=== PATIENT | female | born 1965 | race American Indian/Alaskan Native ===

== ENCOUNTER 2016-08-20 21:03 | Emergency (ER) | payer OTHER ==
[2016-08-20 21:17] VITALS: BP 164/90; PULSE 75; TEMP 97.6; O2SAT 99
[2016-08-20] MEDS ORDERED: Oxycodone/Acetaminophen 5/325 mg Tab PO STA (21:37)
--- NOTE | 2016-08-20 21:40 | C.PDOC ---
History Of Present Illness 50 yr old female presents to the ER for evaluation of right sided back pain, gradually worsening since morning. Patient states the pain is localized and worse with movement and standing. Patient admits to the similar symptoms in the past. Patient denies trauma, injury, nausea, vomiting, abdominal pain, diarrhea , dysuria, hematuria, incontinence, saddle anesthesia, weakness or numbness to B /L LEs. Ambulate to Ed for evaluation, appears in pain. Time Seen by Provider: 08/20/16 21:17 Chief Complaint (Nursing): Back Pain History Per: Patient History/Exam Limitations: no limitations Onset/Duration Of Symptoms: Gradual (Since morning ) Current Symptoms Are (Timing): Still Present Past Medical History Reviewed: Historical Data, Nursing Documentation, Vital Signs Vital Signs: Last Vital Signs Temp 97.6 F 08/20/16 21:16 Pulse 75 08/20/16 21:16 Resp 18 08/20/16 21:16 BP 164/90 H 08/20/16 21:16 Pulse Ox 99 08/20/16 21:46 - Medical History PMH: HTN Family History: States: No Known Family Hx - Social History Hx Alcohol Use: No Hx Substance Use: No Review Of Systems Except As Marked, All Systems Reviewed And Found Negative. Gastrointestinal: Negative for: Nausea, Vomiting, Abdominal Pain, Diarrhea Genitourinary: Negative for: Dysuria, Incontinence, Hematuria Musculoskeletal: Positive for: Back Pain (Right sided back pain ) Neurological: Negative for: Weakness, Numbness Physical Exam - Physical Exam Appears: Well, Non-toxic, No Acute Distress Skin: Normal Color, Warm Eye(s): bilateral: PERRL Nose: Normal Throat: Normal, No Erythema, No Exudate, No Drooling Neck: Trachea Midline, Supple Cardiovascular: Rhythm Regular Respiratory: No Stridor, No Wheezing Gastrointestinal/Abdominal: Soft, No Tenderness Back: No CVA Tenderness, No Vertebral Tenderness, Paraspinal Tenderness (RIGHT LUMBAR PARASPINAL TENDERNESS. NO MIDLINE TENDERNESS), Other (RIGHT FLANK TENDERNESS) Extremity: No Pedal Edema, No Swelling Neurological/Psych: Oriented x3, Normal Speech, Normal Motor, Normal Sensation, Normal Reflexes ED Course And Treatment O2 Sat by Pulse Oximetry: 99 Pulse Ox Interpretation: Normal Progress Note: On re-eval, pt is afebrile, hemodynamicalyt stable. Nontoxic. AMbulaoty irn ED with stable gait. PulseOx 98% RA. ENT: no acute findings. ABd : benign. Neurologicaly intact. UA results review and appears normal. Pt has clinical findings c/w Right sided lumbar radiculopathy. Pt advised. Ref. to f/u with PMD in 2-3 days for re-eval. return if any new changes. Medical Decision Making Medical Decision Making: PLAN: * Urinalysis * Percocet PO * Motrin PO Disposition Counseled Patient/Family Regarding: Studies Performed, Diagnosis, Need For Followup, Rx Given - Disposition Referrals: Matthew Sahni MD [Staff Provider] - Disposition: HOME/ ROUTINE Disposition Time: 21:49 Condition: STABLE Additional Instructions: Take medication as prescribed Light duty to lower back Follow up with PMD in 2-3 days for re-evaluation. Return to ED if any worsening or new changes. Prescriptions: Ibuprofen [Motrin Tab] 600 mg PO Q6 #20 tab Methocarbamol [Robaxin] 500 mg PO TID #14 tab traMADol [Ultram] 50 mg PO TID #7 tab Instructions: Lumbar Radiculopathy (ED) - Clinical Impression Clinical Impression: Lumbar radiculopathy - PA / PIPELINE OPERATOR / Resident Statement MD/DO has reviewed & agrees with the documentation as recorded. - Scribe Statement The provider has reviewed the documentation as recorded by the Scribe Elsie White All medical record entries made by the Scribe were at my direction and personally dictated by me. I have reviewed the chart and agree that the record accurately reflects my personal performance of the history, physical exam, medical decision making, and the department course for this patient. I have also personally directed, reviewed, and agree with the discharge instructions and disposition.
[2016-08-20 21:41] LABS: RBC URINE < 1 /hpf (0-3); URINE BILIRUBIN NEGATIVE (NEGATIVE); URINE BLOOD NEGATIVE (NEGATIVE); URINE COLOR Yellow (YELLOW); URINE GLUCOSE (UA) NORMAL (Normal); URINE KETONE NEGATIVE (NEGATIVE); URINE LEUKOCYTE ESTERASE NEG Leu/uL (Negative); URINE PROTEIN 1+ mg/dL (NEGATIVE); URINE UROBILINOGEN NORMAL mg/dL (0.2-1.0); WBC URINE 1 /hpf (0-5)
[2016-08-20] MEDS ORDERED: Oxycodone/Acetaminophen 5/325 mg Tab ONE (21:44)
[2016-08-20 22:03] VITALS: RESP 20
== END 2016-08-20 22:02 | disposition home or self-care (01) ==
LOC: C.ER 21:03
DX: M54.16 Radiculopathy, lumbar region (principal)

== ENCOUNTER 2017-11-13 05:43 | Day surgery (SDC) | payer OTHER ==
[2017-11-06 12:17] VITALS: BMI 41.1
[2017-11-13] MEDS ORDERED: Rocuronium 10 mg/ml (5 ml) ONE ×2 (08:39→09:54)
[2017-11-13] MEDS ORDERED: Bupivacaine 0.25% 20 ML INJ IJ ONE ×2 (09:06→13:44)
[2017-11-13] MEDS ORDERED: EPINEPHrine 1:1000 Nasal Sol(30mL) ONE (09:07)
[2017-11-13] MEDS ORDERED: ceFAZolin IV 2 gm in Dextrose 2 GM/50 ML BAG IVPB ONE (09:07)
[2017-11-13] MEDS ORDERED: Morphine 4 MG/ML VIAL ONE ×2 (09:12→11:42)
[2017-11-13] MEDS ORDERED: ePHEDrine 50 mg/ml Inj ONE (10:54)
[2017-11-13] MEDS ORDERED: Neostigmine Methylsulfate 3mg/3ml Syringe IV ONE (11:58)
[2017-11-13] MEDS ORDERED: Propofol 10 mg/ml Inj (20 ML) ONE (12:20)
[2017-11-13] MEDS: HYDROmorphone 0.5 mg/0.5 ml ISec IVP PRN ×2 (13:18→13:38)
[2017-11-13 13:19] LABS: HEPATITIS B SURFACE AG Negative (NEGATIVE)
[2017-11-13 13:25] LABS: HEPATITIS A IGM NEGATIVE (NEGATIVE); HEPATITIS B CORE AB NEGATIVE (NEGATIVE)
[2017-11-13 13:37] LABS: HEPATITIS C ANTIBODY NEGATIVE (NEGATIVE)
[2017-11-13 15:14] VITALS: O2SAT 100
[2017-11-13 17:39] VITALS: BP 147/70; PULSE 88; RESP 18; TEMP 97
--- NOTE | 2017-11-13 18:02 | PCM.ANESB7 ---
Adductor Canal Block - Adductor Canal Block Date of Procedure: 11/13/17 Anesthiologist: Roman Marrero Pre-Procedure Diagnosis: acute postoperative pain Post-Procedure Diagnosis: acute postoperative pain Procedure Performed: Adductor Canal Block Left - Procedure Adductor Canal Block: The procedure was explained to the patient that it is for the post-operative pain management. Consent was obtained after a thorough discussion with the patient regarding the benefits and possible complications of local anesthetic adductor canal block of the femoral nerve. Standard monitors, as defined by the ASA, were applied to the patient. Time-out was held with the circulating nurse to confirm the appropriate block. After applying supplemental oxygen and administering IV Sedation as needed, the patient was placed in supine position with and the operative leg was flexed slightly at the knee and externally rotated as needed, and was kept anatomically stable. The mid-thigh of the LEFT lower extremity was exposed. The ultrasound transducer was then applied transversely along the medial aspect, about midway down the thigh and the femoral artery and vein were identified in appropriate relation with the sartorius muscle. At this time, the femoral nerve was visualized lateral to the femoral artery within the canal. After thorough identification, this area area was prepped with Chloroprep solution three times and 1 % Lidocaine was injected subcutaneously for topical anesthesia. At this point, a #22 gauge Stimuplex 4-inch needle was inserted in-plane in a [id number] orientation, and advanced toward the femoral nerve. Advancement was performed carefully under direct ultrasound visualization. . After negative aspiration, _10_cc of __0.25% bupivicaine__was injected and this was followed with 0.25% bupivicaine. Under ultrasound guidance the local anesthetics were observed spreading around the saphenous nerve. The needle was removed intact and sterile dressing was applied. The patient had stable vital signs, was conscious and in no apparent distress. The patient tolerated the nerve block well with stable vital signs with no complaints throughout, no paraesthesias or pain during injection.
--- NOTE | 2017-11-14 16:57 | PCM.SURG1 ---
Surgeon's Initial Post Op Note - Surgeon's Notes Surgeon: Elgin Diaz MD [facility] Occupational Therapist: DANIEL Sotelo Type of Anesthesia: General Endo, [facility] Pre-Operative Diagnosis: Left knee: #1 medial meniscal tear. #2 osteochondral full thickness injury to Lateral femoral condyle. #3 lateral patellar maltracking. #4 valgus alignment. #5 synovitis Operative Findings: Left knee: #1 medial meniscal tear (complex posterior horn flap tear not repairable/ peripheral red-red zone tear with instability). #2 osteochondral full thickness injury to Lateral femoral condyle (measuring [id number] at anterior aspect of WB zone). #3 full thickness cartilage injury to medial femoral condyle (measuring 20mm AP x 8mm width at WB aspect of middle MFC). #4 lateral meniscal tear (free edge complex tearing, not repairable/ peripheral red-red zone menisco-capsular detachment, repairable). #5 lateral patellar maltracking (grade 2). #6 valgus alignment. #7 synovitis all 3 compartments. #8 hypertorphic fat pad inflammed (casuing anterior impingement) . #9 patello-femoral/ trochlear grade 2 chondromalacia Post-Operative Diagnosis: Left knee: #1 medial meniscal tear (complex posterior horn flap tear not repairable/ peripheral red-red zone tear with instability). #2 osteochondral full thickness injury to Lateral femoral condyle (measuring [id number] at anterior aspect of WB zone). #3 full thickness cartilage injury to medial femoral condyle (measuring 20mm AP x 8mm width at WB aspect of middle MFC). #4 lateral meniscal tear (free edge complex tearing, not repairable/ peripheral red-red zone menisco-capsular detachment, repairable) . #5 lateral patellar maltracking (grade 2). #6 valgus alignment. #7 synovitis all 3 compartments. #8 hypertorphic fat pad inflammed (casuing anterior impingement). #9 patello-femoral/ trochlear grade 2 chondromalacia Operation Performed: Left knee : #1 open osteochondral allograft transplant lateral femoral condyle. #2 open osteochondral allograft transplant medial femoral condyle. #3 arthroscopic lateral meniscus repair. #4 arthroscopic partial medial meniscectomy. #5 arthroscopic extensive synovectomy all 3 compartments. #6 open extensor mechanism realignment (VMO advancement and MPF L plication). #7 arthroscopic resection and debridement of symptomatic med and lateral plica bands. #8 arthroscopic resection and debridement of hypertrophic fat pad. #9 arthroscopic intra-articular PRP injection Specimen/Specimens Removed: specimen = none. Complications = none. Tourniquet time = 120 minutes at 300 mmHg. Implant =. #1 Linvatec all inside Sequent meniscal repair system with 4 implants used for medial meniscus stabilization, 8 implants used for lateral meniscus repair, 3 kids opened in total. #2 [employer] /Arthrex lateral femoral condyle fresh osteochondral allograft for which osteochondral allograft transplantation was carried out to the lateral femoral condyle and medial femoral condyle Estimated Blood Loss: EBL {In ML}: 50 Blood Products Given: N/A Drains Used: No Drains Post-Op Condition: Good Date of Surgery/Procedure: 11/13/17 Time of Surgery/Procedure: 12:00
--- NOTE | 2017-11-15 03:51 | OP ---
Copied To: Elgin Diaz MD Attending MD: Elgin Diaz MD PROCEDURE DATE: 11/13/2017 PREOPERATIVE DIAGNOSES: Left knee, 1. Medial meniscal tear. 2. Osteochondral injury, lateral femoral condyle. 3. Lateral patellar maltracking. 4. Valgus alignment. 5. Synovitis. POSTOPERATIVE DIAGNOSES: Left knee, 1. Medial meniscal tear (complex posterior horn flap tear not repairable/peripheral red-red zone tear with instability amenable to stabilization). 2. Osteochondral full-thickness injury to lateral femoral condyle (measuring 20 mm anterior to posterior x 23 mm width at anterior aspect of weightbearing zone). 3. Full-thickness cartilage injury to medial femoral condyle (measuring 20 mm anterior to posterior x 8 mm width at weightbearing aspect of middle zone of medial femoral condyle). 4. Lateral meniscal tear (free-edge complex tearing not repairable/peripheral red-red zone meniscal capsular detachment repairable) 5. Lateral patellar maltracking grade 2. 6. Valgus alignment. 7. Synovitis in all 3 compartments. 8. Hypertrophic inflamed fat-pad (causing anterior impingement). 9. Patellofemoral/trochlear grade 2 chondromalacia. PROCEDURE: Left knee, 1. Open osteochondral allograft transplantation to lateral femoral condyle. 2. Open osteochondral allograft transplantation to medial femoral condyle. 3. Arthroscopic lateral meniscus repair. 4. Arthroscopic partial medial meniscectomy. 5. Arthroscopic extensive synovectomy, all three compartments. 6. Open extensor mechanism realignment. 7. Arthroscopic resection and debridement of symptomatic medial and lateral plica bands. 8. Arthroscopic resection and debridement of hypertrophic fat-pad. 9. Arthroscopic intraarticular PRP injection. 10. Arthroscopic chondroplasty patellofemoral joint. SURGEON: Elgin Diaz MD PRODUCT MANAGEMENT INTERN: Vivi Sorto PA-C JUSTIFICATION FOR PRODUCT MANAGEMENT INTERN: Vivi Sorto is a certified physician social human services assistants whose skilled surgical service was an absolutely necessity for successful completion of the procedure as he provided skilled surgical assistance with positioning of patient, positioning of extremity, management of surgical field, management of arthroscopic equipment including all inside arthroscopic meniscal repair, chondroplasty, retractions of neurovascular structures, and preparation of recipient site for osteochondral allograft to medial femoral condyle and lateral femoral condyle, preparation of donor osteochondral allograft transplantation grafts, allograft transplantation to both sites, final placement and fixation of osteochondral allograft transplantation to medial femoral condyle and lateral femoral condyle, open extensor mechanism realignment, wound closure, fitting and placement of postop hinged knee brace. Emaus Macario was present for the entire case and was an absolute necessity for successful completion of the procedure. TYPE OF ANESTHESIA: General endotracheal anesthesia with a postop regional nerve block placed by anesthesia staff in PACU. COMPLICATIONS: None. ESTIMATED BLOOD LOSS: 50 mL SPECIMEN: None. DRAINS: None. IMPLANTS: Linvatec All-Inside Meniscal Repair System with 4 implants used for medial meniscus stabilization, 8 implants used for lateral meniscus repair, 4 kits opened in total. Quincus/Arthrex lateral femoral condyle fresh osteochondral allograft for which the osteochondral allograft transplantation was harvested and used as a donor for the recipient to the lateral femoral condyle and medial femoral condyle. DISPOSITION: Patient was extubated and transferred to the PACU in stable condition and tolerated the procedure well. INDICATIONS FOR SURGERY: The patient is a 52-year-old female with a past medical history significant for hypertension who presents to the office under my care for the first time on 09/21/2017 with left knee pain with multiple episodes of giving way and locking. She stated that she thought 3 weeks previously she had a misstep and had progressively worsening medial and lateral joint line pain. Prior to this, she did not have significant left knee pain. She had been increasing her activity as well to try to lose weight, and at this point in time, feels that she is frustrated because she is not able to continue her lopez progress in her lifestyle modification to lose weight. She was referred by her primary care physician, Dr. Sahni, who attempted for an MRI that was done at [facility] on 09/10/2017 of the left knee. MRI left knee done at [facility] on 09/10/2017 was read as: 1. Vyja-kd-hlxowywy cartilage loss involving the anterior to mid portion of the lateral femoral condyle with a large focal area of signal abnormality with cortical surface abnormality at the level of the anterior lateral femoral condyle near the intercondylar notch, measuring 2 x 1.5 x 2.2 cm. This may represent a prominent osteochondral lesion with associated articular surface and cortical abnormality. 2. Thinning and attenuation with increased signal seen within the visualized anterior cruciate ligament, suggested for moderate great sprain. 3. Transverse linear oblique signal within the body and posterior horn of the medial meniscus, suggested for a tear. 4. Linear increased signal seen within the body and posterior horn of the lateral meniscus, suggested for intrasubstance degeneration. 5. High-grade sprain and/or partial tearing, medial collateral ligament. 6. Focal cartilage thinning and loss at the medial patellar facet. 7. Moderate cartilage thinning and loss involving the anterior to mid portion of the medial compartment. On initial presentation in the office, she had painful range of motion with pain localized to the medial and lateral joint lines with no evidence of instability. There was reproducible clicking and catching along the lateral femoral condyle during patellar tracking representing what we thought would be an osteochondral lesion interacting with the patellofemoral joint as she had lateral patellar maltracking and a valgus alignment. The patella exhibited grade 1 to 2 lateral patellar maltracking but no full on instability or ability to dislocate. X-rays done in my office showed that the joint spaces were well maintained with no significant advanced signs of degenerative joint disease present. She underwent a cortisone mixture injection in my office on 09/21/2017 that resulted in complete resolution of pain and she was placed in a hinged knee brace. She was referred to physical therapy for which she was compliant. She returned to the office 4 weeks later and stated that the injection provided her with near complete resolution of pain for approximately 1 week and then the pain progressively returned to baseline level of 8/10 at all times. She was having difficulty with ADLs and performing her work functions and getting to work to commute. After reviewing her MRI with her and going through treatment options, she stated that she did not want to undergo anymore injections and that she wanted to have definitive care as soon as possible, as this pain was acute in onset and she did have acute changes on MRI. She was indicated for left knee arthroscopic, medial and possibly lateral meniscus repairs versus partial meniscotomy, synovectomy, and all related indicated arthroscopic procedures as well as open osteochondral allograft transplantation to the lateral femoral condyle and possibly the medial femoral condyle as well as an open extensor mechanism realignment in the form of MPFL plication and VMO advancement and all related indicated procedures. The risks, benefits, and alternatives of the procedure were discussed at length with the patient with the risks included not limited to infection, neurovascular damage, need for further surgery, failure of graft incorporation, graft rejection, accelerated chondral wear, postoperative pain, development of chronic pain and disability, development of blood clots including DVT and PE, need for further surgery, progression of degenerative joint disease to the point of needing a knee replacement, inability to return to preinjury level of activity and function, anesthesia reactions including . After answering all of her questions, she stated that she understood the risks and wished to proceed with surgery. She watched surgical animation videos and diagnosis animation video and stated that she had a good understanding of her procedure as well as her diagnoses. I reviewed at length with her the postoperative rehabilitation protocol and she stated that she had full understanding of the protocol and knew that she had to be compliant with the postop instructions in order for her to maximize chances of having successful outcome after surgery. She was referred to her primary care physician, Dr. Sahni, for preoperative medical evaluation and the procedure was scheduled at [facility] on 11/13/2017. PROCEDURE IN DETAIL: The patient was identified in the preoperative holding area and the left knee was marked for surgery. Once again, as described above, the risks, benefits, and alternatives of the procedure were discussed at length with the patient and informed consent was obtained. After brief discussion with anesthesia staff, the patient was taken to the operating room and placed on a well padded operating room table without bony prominences and superficial neurovascular structures were well padded. An initial time-out was done with the surgeon, anesthesia staff, OR staff, all in agreement with the patient, procedure to be done, extremity to be operated on. General anesthesia was administered without difficult or complications. Then, examination under anesthesia was then carried. EXAMINATION UNDER ANESTHESIA: Left knee with full range of motion compared to contralateral knee. There was reproducible clicking and catching at the lateral aspect of the patellofemoral joint, representing an osteochondral defect of the lateral femoral condyle anteriorly engaging with the patella as the patella had lateral patellar maltracking that was evident on exam, no evidence of instability, negative Deondre, negative anterior drawer, negative posterior drawer, negative reverse Deondre, negative pivot shift, negative reverse pivot shift, negative opening to medial and lateral joint line to 0 to 30 degrees varus or valgus stress, patella with grade 2 lateral maltracking and subluxation with no gross dislocation evident with a positive J-sign and overall positive valgus alignment. CONTINUATION OF PROCEDURE: Tourniquet was placed high on the left thigh but never inflated. Left lower extremity was prepped and draped in standard sterile fashion. Final time-out was done with the surgeon, anesthesia staff, OR staff, all in agreement with the patient, procedure to be done, and extremity to be operated on. We began with a diagnostic arthroscopy and arthroscopic surgery/treatment of intraarticular pathology. The knee was insufflated with 50 mL of normal saline. Anterolateral portal was created with stab incision through skin down and subcutaneous tissues down to the level of capsule. Blunt arthroscopic trocar and cannula were inserted into the suprapatellar pouch and insufflation of the arthroscopic fluid was begun. Arthroscopic camera was inserted and with the use of spinal needle localization, anteromedial portal was created through stab incision through skin down to subcutaneous tissues down to the level of capsule and the accessory cannula was inserted through the anteromedial portal. The knee was then copiously irrigated for better visualization and removal of synovial debris. With the use of an arthroscopic probe, a diagnostic arthroscopy was then carried out. DIAGNOSTIC ARTHROSCOPY: We first turned our attention to the suprapatellar pouch and there was no evidence of adhesions or loose bodies. Attention was then turned towards the patellofemoral joint. What immediately seen was a laterally subluxed patella with a grade 2 lateral instability and maltracking with chondromalacia at the medial facet grade 2 with no focal-thickness defect seen, just fibrillation of cartilage. We then turned our attention to the medial gutter, where immediately seen extending from the inferomedial aspects of the patella to the medial retinaculum was a thickened hypertrophic medial plica band with significant inflammation. There was also significant hypertrophic synovium and synovitis throughout all 3 compartments. We then turned out attention to the medial compartment, where immediately seen was a complex flap tear of the posterior horn that did not appear to be repairable with some degenerative changes. The posterior horn also exhibited a secondary tear in the periphery with significant instability of the posterior horn with ability to sublux the posterior horn of the meniscus beyond the midpoint of the medial femoral condyle. The medial femoral condyle exhibited a focal area of 8 mm width x 20 mm anterior to posterior length of full-thickness cartilage loss at the weightbearing aspect of the medial femoral condyle with surrounding intact zone of cartilage. The medial tibial plateau exhibited one small area measuring 2 mm x 2 mm of full-thickness cartilage injury and intact cartilage throughout the rest of the plateau. This isolated medial tibial plateau zone of injury was just adjacent to the anterior horn of the medial meniscus at the most anteromedial aspect of the plateau. Attention was then turned towards the intercondylar notch where intact ACL and PCL were seen, and again, there was hypertrophic synovium throughout all 3 compartments as well as a thickened hypertrophic and inflamed fat-pad that appeared to be causing anterior impingement coinciding with the patient's pain at terminal extension. Attention was then turned towards the lateral compartment where immediately seen and visualized at the initial diagnostic scope at the patellofemoral joint was a zone of osteochondral injury and chondral blistering with underlying exposed subchondral bone at the anterior aspect of the lateral femoral condyle at the weightbearing zone at the junction with the trochlea, also interacting with the patella as it was a lateral maltracking patella. This zone of injury measured 20 mm in width x 23 mm in anterior to posterior length. Also, within the lateral compartment, under careful evaluation was a lateral meniscus tear with 2 zones of injury. There was a free edge complex tearing at the posterior horn extending to the mid body that was not amenable to repair. There was also a red-red zone peripheral injury of the lateral meniscus with significant instability. ARTHROSCOPIC LATERAL MENISCUS REPAIR: With the use of arthroscopic shaver and radiofrequency ablation, partial lateral meniscectomy was carried out, resecting less than 5% of lateral meniscus overall, debriding and establishing a smooth contour at the area of free edge tear as described above. This was a complex tear at the free edge of the posterior horn, extending into the posterior midbody as complex free edge white-white zone injury. There was also the secondary zone of injury of the lateral meniscus at the periphery as a red-red zone injury/meniscal capsular separation with resulting lateral meniscus instability as a large peripheral tear. The quality of the lateral meniscus tissue was good, and therefore, we decided to proceed with lateral meniscus repair and stabilization. With the use of the Linvatec All-Inside Meniscal Repair System, 4 implants were placed superiorly at the superior aspect of lateral meniscus anterior to the popliteal hiatus with care taken not to incorporate the popliteal tendon into the repair constructs. Four implants were placed with good capsular-sided fixation with resulting 3 vertical mattress sutures. This provided significant stability and synagogue of the meniscal capsular relationship of the posterior horn of the lateral meniscus. This was repeated with placement of 4 more implants on the inferior aspect of the posterior horn posterior to the popliteal hiatus restoring good stability, and meniscal capsular separation was repaired successfully with good stability achieved. Again, this was a peripheral red-red zone injury and the tissue was of good quality and amenable to repair and stabilization. ARTHROSCOPIC CHONDROPLASTY: With the use of arthroscopic shaver and radiofrequency ablation, chondroplasty of the patellofemoral joint and the medial tibial plateau chondral injury was carried out. Smooth contouring to the patella and trochlea were established with use of the radiofrequency ablation and the shaver. The small zone of focal cartilage injury to the anteromedial aspect of the tibial plateau was debrided with use of arthroscopic shaver and radiofrequency ablation establishing a smooth contour as well. Once the chondroplasty was completed at the patellofemoral joint and lateral compartment, we then turned our attention to medial compartment. ARTHROSCOPIC PARTIAL MEDIAL MENISCECTOMY: We turned our attention to the medial compartment and reevaluated the medial meniscus. As stated before, it was complex tearing with poor quality of meniscal tissue remaining. It was a large flap tear extending from the posterior midbody to the posterior horn that was not amenable to repair. There was also secondary complex tearing at the posterior horn posterior root junction. There was also a peripheral posterior horn red-red zone injury with instability resulting of the posterior horn. With the use of radiofrequency ablation and the arthroscopic shaver and meniscal biters, a partial medial meniscotomy was carried out resecting the flap tear and the posterior horn/posterior root complex tearing that was not amenable to repair. This resulted in resection of approximately 25% of the medial meniscus overall. The remnant posterior horn medial meniscus was amenable to stabilization and with the use of the Linvatec All-Inside Meniscal Repair System, 4 implants were placed at the posterior horn with alternating horizontal and vertical mattress sutures resulting in good stability with inability to sublux the posterior horn beyond the medial femoral condyle as was evident prior to the stabilization. Once we are satisfied with the medial compartment treatment, we then continued with the extensive synovectomy. ARTHROSCOPIC EXTENSIVE SYNOVECTOMY: With the use of radiofrequency ablation and arthroscopic shaver, an extensive synovectomy in all 3 compartments was carried out that was beyond but was considered usual and customary for better visualization during arthroscopic procedures and a significant amount of surgical time was dedicated to this part of the procedure. The synovium exhibited significant hypertrophic and inflamed synovitis throughout all 3 compartments as well as a hypertrophic and inflamed thickened medial and lateral plica bands as well as hypertrophic and inflamed anterior infrapatellar fat-pad causing anterior impingement on extension. With the use of radiofrequency ablation and arthroscopic shaver, an extensive synovectomy was carried out including resection of the hypertrophic synovium throughout all 3 compartments, resection and debridement of the symptomatic medial and lateral plica bands while maintaining good hemostasis, resection and debridement of the hypertrophic fat-pad causing anterior impingement. Once this was all carried out to satisfaction while maintaining good hemostasis, we then turned out attention to the open part of the procedure. To facilitate the open osteochondral allograft transplantation to the lateral femoral condyle lesion and the medial femoral condyle lesion as well as the extensor mechanism realignment, a medial parapatellar approach was employed for this procedure. The anterior medial portal was expanded proximally along the medial edge of the patella through skin down subcutaneous tissues down to the level of the retinaculum maintaining good hemostasis. Tourniquet was inflated for this part of the procedure. The left lower extremity was exsanguinated and the tourniquet was inflated for a total tourniquet time of 120 minutes at 300 mmHg. Incision was carried out and extended through skin down subcutaneous tissues down to the level of retinaculum while maintaining good hemostasis. Incision was approximately 5 cm in length starting at the level of the anterior medial portal and working proximally. Once we reached the level of retinaculum, care was taken to perform arthrotomy that would also help and facilitate the extensor mechanism realignment with plication of the MPFL and advancement of the VMO insertion. Incision was made through the medial fibers of the quadriceps tendon down along the vastus medius obliquus that was elevated from superior pole of the patella around the medial aspect of the patella down to the medial aspect of the patellar tendon fibers. This allowed for full access to the knee joint chondral surface as well as the ability to retract the patella for access to the lateral femoral condyle chondral lesion. We first turned our attention to the lateral femoral condyle osteochondral defect, which was measured with the sizer and a 22.5 mm osteochondral plug was found to cover the defect perfectly. Corresponding area of damage at the lateral femoral condyle of the donor was sized and marked and a 22.5 mm width 15 mm depth osteochondral plug was harvested successfully from the donor. A 22.5 mm reamer was then used to prepare the recipient site. This was carried out successfully and the depth measurements were taken at the 12 o'clock, 3 o'clock, 6 o'clock, and 9 o'clock positions on the recipient site. These corresponding depth measurements were then matched up with the donor and the osteochondral allograft plug was prepared accordingly to fit within the recipient site flush. Once the final preparations were made, the plug was then impacted carefully into the recipient site flush and good position with good stability achieved and the chondral surface with the surrounding host lateral femoral condyle cartilage was flushed. OPEN OSTEOCHONDRAL ALLOGRAFT TRANSPLANTATION TO THE MEDIAL FEMORAL CONDYLE: The medial femoral condyle osteochondral injury was full-thickness and measured 8 mm in width and 20 mm from anterior to posterior length. The surrounding cartilage was intact, and therefore, we decided to proceed with a focal treatment to this oval full-thickness cartilage injury of the medial femoral condyle with a biologic unicondylar osteochondral allograft transplantation to the medial femoral condyle. The donor was prepared accordingly and a size small osteochondral unicondylar biologic allograft in the shape of an oval size small from [employer] was harvested. The sizer was used to ensure that the lesion on the medial femoral condyle would be entirely covered with this transplant. Once the donor site was harvested and the graft was obtained, we then turned out attention to the recipient site preparation. The recipient site was prepared and depth measurements were taken for the oval. We confirmed the depth measurements with the donor graft. Final adjustments were made for depth placement and flush fitting of the graft. The graft was then impacted carefully into position and fit perfectly flushed with the surrounding chondral surface of the medial femoral condyle with no step-off. Once this was done with satisfaction, the knee was copiously irrigated and both osteochondral allograft recipient and donor were copiously irrigated prior to the completion of the transplantation as well. Once this was done to satisfaction, the final images were taken as clinical pictures of the transplant. We then turned out attention to the wound closure and extensor mechanism realignment. OPEN EXTENSOR MECHANISM REALIGNMENT: With use of #2 FiberWire suture with a [id number] configuration, the vastus medialis obliquus muscle insertion at the superior medial aspect of the patella was advanced and secured as a proximal extensor mechanism realignment. The quadriceps tendon was repaired as closure for the arthrotomy and also plicated over as an advancement to help with the extensor mechanism realignment. The MPFL was identified and as it was repaired back to the location on the patella it was plicated to offer a tightening of the medial retinaculum and MPFL, which was successful overall as clinically the patella sat within the trochlear groove and tracked nicely with no remaining subluxation evident. Once the retinacular closure was completed, skin was reapproximated with 2-0 Vicryl suture followed by 3-0 Monocryl for skin. Arthroscopic camera was then inserted back into the knee joint and the extensor synovectomy was completed to satisfaction with maintaining good hemostasis. Final arthroscopic pictures were taken of the lateral meniscus repair and partial medial meniscectomy as well as the 2 osteochondral allograft transplants and arthroscopic pictures were taken showing the patella well fitted within the trochlea with resolution and successful extensor mechanism realignment carried out. Once final images were taken, the arthroscopic fluid was evacuated from the knee as well as all arthroscopic debris. ARTHROSCOPIC INTRAARTICULAR PRP INJECTION: With the help of anesthesia staff through a peripheral venous stick, we were able to obtain 7 mL of PRP. A venous stick was carried out by anesthesia staff and the blood was spun in the centrifuge from [employer]. This resulted in 7 mL of PRP which was injected intraarticularly under direct visualization successfully in its entirety. Arthroscopic portal was then closed with 2-0 Vicryl suture for subcutaneous tissues followed by 3-0 Monocryl suture for skin. Sterile dressings were applied followed by a layer of sterile cast padding from the toes up to the superior thigh followed by a layer of compressive Wayne wrap from the toes up to the superior thigh. The knee was then fitted in placed in a postoperative hinged knee brace locked in extension provided by my office. Once the brace on and locked in extension, the patient was extubated and transferred to PACU in stable condition and tolerated the procedure well. JUSTIFICATION FOR BILLING AND CODIN. An arthroscopic [employer] lateral meniscus repair was carried out successfully and therefore it was coded and billed. 2. Arthroscopic partial and medial meniscectomy was carried out successfully as well as stabilization. The majority of the medial meniscus treatment was a partial medial meniscectomy and the stabilization was done to preserve the posterior horn of the medial meniscus and to prevent from further injury as the mainstay of treatment was the partial medial meniscectomy resecting 25% to 30% of the medial meniscus overall. Therefore, a partial medial meniscectomy was coded and billed. 3. Arthroscopic extensive synovectomy was carried out that was beyond but was considered usual and customary for arthroscopic surgery for better visualization and this included extensive synovectomy of all 3 compartments of the knee joint, debridement and resection of hypertrophic fat-pad causing anterior impingement, resection and debridement of hypertrophic thickened plica bands that were symptomatic. Extensive synovectomy in all 3 compartments was carried as described, and therefore, was coded and billed. 4. Arthroscopic chondroplasty of the medial tibial plateau and the patella and the trochlea were carried out successfully, and therefore, chondroplasty was coded and billed. 5. Open osteochondral allograft transplantation to the lateral femoral condyle zone of full-thickness cartilage injury/osteochondral injury was carried out successfully, and therefore, it was coded and billed. 6. Open osteochondral allograft transplantation of medial femoral condyle as a separate osteochondral defect in a separate compartment was carried out successfully, and therefore, it was coded and billed as an independent part of the procedure. 7. Open extensor mechanism realignment was carried out successfully treating the lateral patellar maltracking with evident patella well fitted within the trochlea with good stability achieved, and therefore, was coded and billed. 8. Arthroscopic intraarticular PRP injection was carried out successfully. and therefore. was coded and billed. 9. A postoperative hinged knee brace provided my office was fitted and placed on the patient at the end of the procedure and was of medical necessity to protect the lateral meniscus repair as well as the osteochondral allograft transplant and provide stability for the knee for the patient. The brace was provided by my office, and therefore, was coded and billed. DISPOSITION: Patient will be discharged home when she is covered from anesthesia in PACU. She has been given a prescription for Percocet for pain control. She has been given a prescription for Lovenox as DVT prophylaxis 40 mg subcutaneous injection for 2 weeks starting postoperative day #1. She is instructed to keep the dressings clean, dry, and intact. She will be weightbearing as tolerated with the brace locked in extension at 0 degrees. She is instructed to unlock the brace and work on gentle progressive range of motion and she has been given a prescription to start physical therapy. She will follow up in my office within one week and already has a postoperative appointment setup. She will contact me directly if there is any questions or concerns. Elgin Diaz MD
== END 2017-11-13 17:41 | disposition home or self-care (01) ==
LOC: C.SDS 05:43
PROVIDERS: ATTEND Student in an Organized Health Care Education/Training Program
DX: M93.262 Osteochondritis dissecans, left knee (principal); S83.232D Complex tear of medial meniscus, current injury, left knee, subsequent encounter; S83.272D Complex tear of lateral meniscus, current injury, left knee, subsequent encounter; M67.862 Other specified disorders of synovium, left knee
CPT/HCPCS: 29876; 29880; 36415; 80074; 86592; 86703; 86706; J0690; J1170; J2270; J2405; J2710; J2765; J3010